=== PATIENT | male | born 1990 | race Caucasian/White ===

== ENCOUNTER → 2016-06-15 | Outpatient (CLI) | payer BC ==
[2016-06-15 08:24] LABS: ABSOLUTE EOSINOPHILS # (AUTO) 0.1 10^3/uL (0.0-0.6); ABSOLUTE LYMPHOCYTES (AUTO) 2.3 10^3/uL (0.5-4.7); ABSOLUTE MONOCYTES (AUTO) 0.5 10^3/uL (0.1-1.4); ABSOLUTE NEUT (AUTO) 4.3 10^3/uL (1.7-8.2); BASOPHILS % (AUTO) 0.6 % (0-2); EOSINOPHILS % (AUTO) 1.9 % (0-6); LYMPHOCYTES % (AUTO) 31.6 % (13-45); MEAN CORPUSCULAR HEMOGLOBIN 28.1 pg (27.0-33.4); MEAN CORPUSCULAR HGB CONC 33.4 g/dL (32.0-36.0); MEAN CORPUSCULAR VOLUME 84 fl (80-97); MONOCYTES % (AUTO) 6.9 % (3-13); RED BLOOD COUNT 4.99 10^6/uL (4.35-5.55); RED CELL DISTRIBUTION WIDTH 13.3 % (11.5-14.0); WHITE BLOOD COUNT 7.3 10^3/uL (4.0-10.5)
[2016-06-15 08:56] LABS: ALANINE AMINOTRANSFERASE 36 U/L (21-72); ALBUMIN 4.6 g/dL (3.5-5.0); ALKALINE PHOSPHATASE 116 U/L (38-126); ANION GAP 13 (5-19); ASPARTATE AMINO TRANSFERASE 22 U/L (17-59); BILIRUBIN,TOTAL 0.7 mg/dL (0.2-1.3); BLOOD UREA NITROGEN 18 mg/dL (7-20); CALCIUM 10.1 mg/dL (8.4-10.2); CARBON DIOXIDE 23 mmol/L (22-30); CHLORIDE 100 mmol/L (98-107); CHOLESTEROL 130.09 mg/dL (0-200); CREATININE RESULT 0.65 mg/dL (0.52-1.25); Direct HDL 60 mg/dL (>40); GLUCOSE 335 mg/dL (75-110); POTASSIUM 4.8 mmol/L (3.6-5.0); TOTAL PROTEIN 7.4 g/dL (6.3-8.2); TRIGLYCERIDES 83 mg/dL (<150)
[2016-06-15 09:07] LABS: DIRECT LDL 53 mg/dL (<100)
== END ==
LOC: OD 07:25
DX: E10.9 Type 1 diabetes mellitus without complications (principal); I10 Essential (primary) hypertension; E78.2 Mixed hyperlipidemia
CPT/HCPCS: 36415; 80053; 80061; 83036; 84443; 85025

== ENCOUNTER → 2016-10-14 | Outpatient (CLI) | payer BC ==
--- NOTE | 2016-10-14 16:44 | RADIOLOGY REPORT (SQ) ---
EXAM DESCRIPTION: HAND RIGHT 3 VIEWS COMPLETED DATE/TIME: 10/14/2016 4:31 pm REASON FOR STUDY: UNSP INJURY OF RIGHT WRIST, HAND AND FINGER(S), INIT ENCNTR S69.91XA UNSP INJURY OF RIGHT WRIST, HAND AND FINGER(S), INI COMPARISON: None. EXAM PARAMETERS: NUMBER OF VIEWS: Three views. TECHNIQUE: AP, lateral and oblique radiographic images acquired of the right hand. LIMITATIONS: None. FINDINGS: MINERALIZATION: Normal. BONES: Acute fracture, base 5th finger middle phalanx at the PIP joint. There is a step-off marked w ith an arrow on the oblique view. JOINTS: Soft tissue swelling at the right 5th finger PIP joint SOFT TISSUES: Soft tissue swelling at the right 5th finger PIP joint. No foreign body. OTHER: No other significant finding. IMPRESSION: Acute nondisplaced fracture, base right pinky finger middle phalanx TECHNICAL DOCUMENTATION: JOB ID: [id number] [employer]- All Rights Reserved
== END ==
LOC: OD 16:13
PROVIDERS: ATTEND Nurse Practitioner Acute Care
DX: S69.91XA Unspecified injury of right wrist, hand and finger(s), initial encounter (principal); X58.XXXA Exposure to other specified factors, initial encounter; Y93.9 Activity, unspecified; Y92.9 Unspecified place or not applicable

== ENCOUNTER → 2016-12-25 | Outpatient (CLI) | payer BC ==
[2016-12-25 10:30] LABS: ANION GAP 15 (5-19); BLOOD UREA NITROGEN 18 mg/dL (7-20); CALCIUM 9.9 mg/dL (8.4-10.2); CARBON DIOXIDE 21 mmol/L (22-30); CHLORIDE 101 mmol/L (98-107); CREATININE RESULT 0.62 mg/dL (0.52-1.25); GLUCOSE 385 mg/dL (75-110); POTASSIUM 4.5 mmol/L (3.6-5.0); SODIUM 137.1 mmol/L (137-145)
== END ==
LOC: OD 08:36
PROVIDERS: ATTEND Internal Medicine
DX: E10.65 Type 1 diabetes mellitus with hyperglycemia (principal)
CPT/HCPCS: 36415; 80048; 83036

== ENCOUNTER 2018-01-07 22:57 | Emergency (ER) | payer BC ==
[2018-01-07] MEDS ORDERED: IBUPROFEN 800 MG TABLET PO ONE (23:56)
--- NOTE | 2018-01-07 23:57 | ER Document Report ---
HPI - HPI Patient complains to provider of: Chest pain Onset: This evening Onset/Duration: Sudden Quality of pain: Achy Pain Level: 4 Context: Patient states that he was at a concert and was struck by an unknown known object and he ended up falling. Patient denies any cough or difficulty breathing. Patient complains of pain with palpation of the chest. Associated Symptoms: Chest pain. denies: Nonproductive cough, Productive cough , Nausea, Vomiting, Shortness of breath Exacerbated by: Movement, Deep breathing Relieved by: Denies Similar symptoms previously: No Recently seen / treated by doctor: No - ROS ROS below otherwise negative: Yes Systems Reviewed and Negative: Yes All other systems reviewed and negative - CONSTITUTIONAL Constitutional: DENIES: Fever - NEURO Neurology: DENIES: Headache, Weakness - CARDIOVASCULAR Cardiovascular: REPORTS: Chest pain - RESPIRATORY Respiratory: DENIES: Trouble Breathing, Coughing - GASTROINTESTINAL Gastrointestinal: DENIES: Abdominal Pain, Nausea, Patient vomiting - REPRODUCTIVE Reproductive: DENIES: : - MUSCULOSKELETAL Musculoskeletal: DENIES: Extremity pain, Back Pain, Neck Pain - DERM Skin Color: Normal Skin Problems: None Past Medical History - General Information source: Patient - Social History Smoking Status: Never Smoker Frequency of alcohol use: None Drug Abuse: None Occupation: [employer] Family History: Reviewed & Not Pertinent - Past Medical History Cardiac Medical History: Reports: Hx Hypertension Endocrine Medical History: Reports: Hx Diabetes Mellitus Type 1 - previous DKA Surgical Hx: Negative Vertical Provider Document - CONSTITUTIONAL Agree With Documented VS: Yes Exam Limitations: No Limitations General Appearance: WD/WN, No Apparent Distress - INFECTION CONTROL TRAVEL OUTSIDE OF THE [place] IN LAST 30 DAYS: No - HEENT HEENT: Atraumatic, Normocephalic - NECK Neck: Normal Inspection, Supple - RESPIRATORY Respiratory: Breath Sounds Normal, No Respiratory Distress. negative: Chest Non -Tender - Right upper anterior chest wall tenderness, no crepitus or subcutaneous emphysema, no ecchymosis - CARDIOVASCULAR Cardiovascular: Regular Rate, Regular Rhythm, No Murmur - GI/ABDOMEN Gastrointestinal: Abdomen Soft, Abdomen Non-Tender, No Organomegaly - BACK Back: Normal Inspection. negative: CVA Tenderness-Right, CVA Tenderness-Left - MUSCULOSKELETAL/EXTREMETIES Musculoskeletal/Extremeties: MAEW, FROM - NEURO Level of Consciousness: Awake, Alert, Appropriate Motor/Sensory: No Motor Deficit - DERM Integumentary: Warm, Dry, No Rash Course - Re-evaluation Re-evalutation: 01/08/18 00:53 The patient has atypical chest pain as the patient's chest pain is not suggestive of pulmonary embolus, cardiac ischemia, aortic dissection, or other serious etiology. Given the extremely low risk of these diagnoses for the test in evaluation for these possibilities does not appear to be indicated at this time. Patient has been instructed to return if the symptoms worsen or change in any way. - Vital Signs Vital signs: Temp Pulse Resp BP Pulse Ox 98.2 F 95 20 107/60 96 01/07/18 23:29 01/07/18 23:29 01/07/18 23:29 01/07/18 23:29 01/07/18 23:29 - Diagnostic Test Radiology reviewed: Image reviewed, Reports reviewed Discharge - Discharge Clinical Impression: Chest wall pain Condition: Stable Disposition: HOME, SELF-CARE Instructions: Chest Wall Pain ([facility]) Additional Instructions: Return immediately for any new or worsening symptoms Followup with your primary care provider, call tomorrow to make a followup appointment You may take Tylenol [id number] to help with your pain symptoms Prescriptions: Cyclobenzaprine HCl [Flexeril 10 Mg Tablet] 10 mg PO TID #15 tablet Forms: Return to Work Referrals: ARUNA HDEZ MD [LEISA DUBOSE] - Follow up as needed
--- NOTE | 2018-01-08 00:40 | RADIOLOGY REPORT (SQ) ---
EXAM DESCRIPTION: XR CHEST 2 VIEWS COMPLETED DATE/TME: 01/07/2018 23:56 CLINICAL HISTORY: 27 years, Male, fall, R upper chest pain COMPARISON: 10/23/15 NUMBER OF VIEWS: Two TECHNIQUE: Two views of the chest LIMITATIONS: None. FINDINGS: The lungs are clear. The heart is normal in size. There is no pneumothorax or pleural effusion. There is no acute fracture IMPRESSION: No acute cardiopulmonary abnormality 2010 [employer]- All Rights Reserved
[2018-01-08] MEDS ORDERED: LIDOCAINE 5% (700 MG) TRANSDERMAL ADH..PATCH TP ONE (00:52)
[2018-01-08 01:13] VITALS: BP 114/2
== END 2018-01-08 01:13 | disposition home or self-care (01) ==
LOC: ER 22:57
DX: R07.89 Other chest pain (principal); W22.8XXA Striking against or struck by other objects, initial encounter; Y92.89 Other specified places as the place of occurrence of the external cause
CPT/HCPCS: 71046; 99283

== ENCOUNTER 2018-06-28 21:57 | Emergency (ER) | payer BC ==
[2018-06-28] MEDS ORDERED: NORMAL SALINE 1000 ML 1,000 ML IV ONE (22:56)
[2018-06-28] MEDS ORDERED: ONDANSETRON HCL INJ/PF 4 MG/2 ML SDV IV ONE (22:56)
--- NOTE | 2018-06-28 22:56 | ER Document Report ---
ED General - General Chief Complaint: Nausea Stated Complaint: NAUSEA Time Seen by Provider: 06/28/18 22:32 Mode of Arrival: Ambulatory Information source: Patient Notes: 27-year-old male with type 1 diabetes, hypertension presents with nausea that started 3 days prior to arrival. Patient also reports one episode of diarrhea that started today. He denies any vomiting, fever, chills, chest pain, shortness of breath, abdominal pain, dysuria, hematuria, back pain. Patient states that he has been compliant with his Lantus and Humalog. He denies sick contacts. Patient reports that his sugars have been running in the high 100s. TRAVEL OUTSIDE OF THE [place] IN LAST 30 DAYS: No - HPI Onset: Yesterday Onset/Duration: Gradual, Persistent Quality of pain: No pain Severity: None Associated symptoms: Diarrhea, Nausea. denies: Chest pain, Fever, Hurts to breath, Vomiting, Shortness of breath, Weakness Exacerbated by: Denies Relieved by: Denies Similar symptoms previously: No Recently seen / treated by doctor: No - Related Data Allergies/Adverse Reactions: No Known Allergies Allergy (Verified 06/28/18 23:02) Past Medical History - General Information source: Patient, [facility] Records - Social History Smoking Status: Never Smoker Frequency of alcohol use: None Drug Abuse: None Lives with: Family Family History: Reviewed & Not Pertinent Patient has suicidal ideation: No Patient has homicidal ideation: No - Medical History Medical History: Negative - Past Medical History Cardiac Medical History: Reports: Hx Hypertension Endocrine Medical History: Reports: Hx Diabetes Mellitus Type 1 - previous DKA Renal/ Medical History: Reports: Hx Kidney Stones. Denies: Hx Peritoneal Dialysis Review of Systems - Review of Systems Notes: REVIEW OF SYSTEMS: CONSTITUTIONAL : Denies fever, chills, or sweats. Denies recent illness. D enies weight loss, recent hospitalizations. EENT: Denies visual changes, eye pain. Denies sore throat, oral lesions, difficulty swallowing. CARDIOVASCULAR: Denies chest pain. Denies palpitations. Denies lower extremity edema. RESPIRATORY: Denies cough. Denies shortness of breath, wheezing. GASTROINTESTINAL: Denies abdominal pain or distention. Denies vomiting. Denies blood in vomitus, stools, or per rectum. Denies black, tarry stools. Denies constipation. GENITOURINARY: Denies difficulty urinating, painful urination, frequency, blood in urine, testicular pain or penile discharge. MUSCULOSKELETAL: Denies back or neck pain or stiffness. Denies joint pain or swelling. SKIN: Denies rash, lesions or sores. HEMATOLOGIC : Denies easy bruising or bleeding. LYMPHATIC: Denies swollen glands. NEUROLOGICAL: Denies confusion or altered mental status. Denies loss of consciousness. Denies dizziness or lightheadedness. Denies headache. Denies weakness or paralysis. Denies problems difficulty with ambulation, slurred speech. Denies sensory loss, numbness, or tingling. Denies seizures. PSYCHIATRIC: Denies anxiety or stress. Denies depression, suicidal ideation, or Physical Exam - Vital signs Vitals: Temp Pulse Resp BP Pulse Ox 98.3 F 98 18 167/91 H 97 06/28/18 22:04 06/28/18 22:04 06/28/18 22:04 06/28/18 22:04 06/28/18 22:04 Interpretation: Hypertensive. No: Tachycardic, Hypoxic - Notes Notes: PHYSICAL EXAMINATION: GENERAL: Well-appearing, well-nourished and in no acute distress. HEAD: Atraumatic, normocephalic. EYES: Pupils equal round and reactive to light, extraocular movements intact, sclera anicteric, conjunctiva are normal. ENT: Nares patent, oropharynx clear without exudates. Moist mucous membranes. NECK: Normal range of motion, supple without lymphadenopathy LUNGS: Breath sounds clear to auscultation bilaterally and equal. No wheezes rales or rhonchi. HEART: Regular rate and rhythm without murmurs ABDOMEN: Soft, nontender, nondistended abdomen. No guarding, no rebound. No masses appreciated. Musculoskeletal: Normal range of motion, no pitting or edema. No cyanosis. NEUROLOGICAL: Cranial nerves grossly intact. Normal speech, normal gait. Normal sensory, motor exams PSYCH: Normal mood, normal affect. SKIN: Warm, Dry, normal turgor, no rashes or lesions noted. Course - Re-evaluation Re-evalutation: Temp Pulse Resp BP Pulse Ox 98.3 F 98 18 167/91 H 98 06/28/18 22:04 06/28/18 22:04 06/28/18 22:04 06/28/18 22:04 06/28/18 22:32 Laboratory 06/28/18 06/28/18 06/28/18 22:06 22:15 22:37 WBC 7.2 RBC 5.14 Hgb 14.6 Hct 42.5 MCV 83 MCH 28.4 MCHC 34.4 RDW 13.9 Plt Count 304 Seg Neutrophils % 56.1 Lymphocytes % 30.6 Monocytes % 10.3 Eosinophils % 2.5 Basophils % 0.5 Absolute Neutrophils 4.0 Absolute Lymphocytes 2.2 Absolute Monocytes 0.7 Absolute Eosinophils 0.2 Absolute Basophils 0.0 VBG pH VBG pCO2 VBG HCO3 VBG Base Excess Sodium Potassium Chloride Carbon Dioxide Anion Gap BUN Creatinine Est GFR ( Amer) Est GFR (Non-Af Amer) Glucose POC Glucose 187 H Calcium Total Bilirubin Direct Bilirubin Neonat Total Bilirubin Neonat Direct Bilirubin Neonat Indirect Bili AST ALT Alkaline Phosphatase Total Protein Albumin Urine Color YELLOW Urine Appearance SLIGHTLY-CLOUDY Urine pH 5.0 Ur Specific [place] 1.028 Urine Protein NEGATIVE Urine Glucose (UA) >=500 H Urine Ketones TRACE H Urine Blood NEGATIVE Urine Nitrite NEGATIVE Urine Bilirubin NEGATIVE Urine Urobilinogen NEGATIVE Ur Leukocyte Esterase NEGATIVE Urine WBC (Auto) 1 Urine RBC (Auto) 1 Urine Mucus (Auto) MOD Urine Ascorbic Acid NEGATIVE 06/28/18 06/28/18 22:37 22:37 WBC RBC Hgb Hct MCV MCH MCHC RDW Plt Count Seg Neutrophils % Lymphocytes % Monocytes % Eosinophils % Basophils % Absolute Neutrophils Absolute Lymphocytes Absolute Monocytes Absolute Eosinophils Absolute Basophils VBG pH 7.38 VBG pCO2 43.4 VBG HCO3 24.9 VBG Base Excess -0.5 Sodium 139.2 Potassium 4.0 Chloride 106 Carbon Dioxide 24 Anion Gap 9 BUN 15 Creatinine 0.61 Est GFR ( Amer) > 60 Est GFR (Non-Af Amer) > 60 Glucose 192 H POC Glucose Calcium 9.7 Total Bilirubin 0.3 Direct Bilirubin 0.1 Neonat Total Bilirubin Not Reportable Neonat Direct Bilirubin Not Reportable Neonat Indirect Bili Not Reportable AST 27 ALT 36 Alkaline Phosphatase 124 Total Protein 7.4 Albumin 4.3 Urine Color Urine Appearance Urine pH Ur Specific [place] Urine Protein Urine Glucose (UA) Urine Ketones Urine Blood Urine Nitrite Urine Bilirubin Urine Urobilinogen Ur Leukocyte Esterase Urine WBC (Auto) Urine RBC (Auto) Urine Mucus (Auto) Urine Ascorbic Acid 06/28/18 22:55 27-year-old male with type 1 diabetes presents with complaint of nausea only. He does state he had one episode of diarrhea but denies any abdominal pain. Vital signs reviewed upon arrival and patient is afebrile, mildly hypertensive, not hypoxic or tachycardic. Patient does not appear toxic or dehydrated. He is in no acute distress. Previous medical records and nursing notes reviewed. 06/29/18 04:03 CBC is without leukocytosis or anemia. CMP does show hyperglycemia without evidence of DKA. VBG is without acidosis. urinalysis not consistent with infection, is absent of ketones but does show glucose. On reevaluation patient reports improvement of his nausea. He is tolerating p.o. prior to discharge. we will discharge him home with Zofran. Patient encouraged to exercise, eat a healthier diet and follow-up with his primary care physician. Patient was evaluated and treated as appropriate for the patient's presenting symptoms and complaint, with consideration of any critical or life threatening conditions that may be associated with their obtained history and exam as noted above. All results were discussed with patient. Patient provided the opportunity to ask questions, and express concerns. Patient was educated on treatments based on their presumed diagnosis as noted above. At this time we will discharge the patient with return precautions and follow-up recommendations. Verbal discharge instructions given a the bedside. Medication warnings reviewed. Patient is in agreement with this plan and has verbalized understanding of return precautions. After careful consideration I feel that that patient can be safely discharged from the emergency department, they were advised to followup with a primary care physician in 2-3 days. Dictation on this chart was performed using voice recognition software and may result in unintended grammatical, spelling, syntax or errors. 06/29/18 04:04 - Vital Signs Vital signs: Temp Pulse Resp BP Pulse Ox 97.6 F 78 15 115/79 96 06/29/18 01:01 06/29/18 01:55 06/29/18 01:55 06/29/18 01:55 06/29/18 01:55 - Laboratory Result Diagrams: 06/28/18 22:37 06/28/18 22:37 Laboratory results interpreted by me: 06/28/18 06/28/18 06/28/18 22:06 22:15 22:37 Glucose 192 H POC Glucose 187 H Urine Glucose (UA) >=500 H Urine Ketones TRACE H Discharge - Discharge Clinical Impression: Hyperglycemia due to type 1 diabetes mellitus, Nausea, Glucosuria HTN (hypertension) Qualifiers: Hypertension type: unspecified Qualified Code(s): I10 - Essential (primary) hypertension Condition: Good Disposition: HOME, SELF-CARE Instructions: Nausea or Vomiting, Nonspecific ([facility]) Additional Instructions: Your lab work today did not show any evidence of DKA. Your glucose is elevated and there is glucose in your urine. Please take the Zofran as needed for nausea and follow-up with your primary care physician in the next 24-48 hours. You need to followup urgently with your primary care doctor as your blood sugars were dangerously today. You did not have any evidence of a dangerous condition associated with these blood sugars at this time. However, it is very important that you get your blood sugars under control. Please take all of your medications exactly as directed. You should avoid foods that are high in carbohydrates and sugary foods. Losing weight will also help to better control your blood sugars. Please return to emergency department immediately if you develop weakness, persistent vomiting, confusion, or any other symptoms that are concerning to you. Forms: Elevated Blood Pressure
[2018-06-28 22:59] LABS: ABSOLUTE EOSINOPHILS # (AUTO) 0.2 10^3/uL (0.0-0.6); ABSOLUTE LYMPHOCYTES (AUTO) 2.2 10^3/uL (0.5-4.7); ABSOLUTE MONOCYTES (AUTO) 0.7 10^3/uL (0.1-1.4); BASOPHILS % (AUTO) 0.5 % (0-2); EOSINOPHILS % (AUTO) 2.5 % (0-6); HEMATOCRIT 42.5 % (37.9-51.0); HEMOGLOBIN 14.6 g/dL (13.5-17.0); LYMPHOCYTES % (AUTO) 30.6 % (13-45); MEAN CORPUSCULAR HEMOGLOBIN 28.4 pg (27.0-33.4); MEAN CORPUSCULAR HGB CONC 34.4 g/dL (32.0-36.0); MEAN CORPUSCULAR VOLUME 83 fl (80-97); MONOCYTES % (AUTO) 10.3 % (3-13); PLATELET COUNT 304 10^3/uL (150-450); RED BLOOD COUNT 5.14 10^6/uL (4.35-5.55); RED CELL DISTRIBUTION WIDTH 13.9 % (11.5-14.0); SEGMENTED NEUTROPHILS % (AUTO) 56.1 % (42-78); TOTAL CELLS COUNTED % (AUTO) 100 %; WHITE BLOOD COUNT 7.2 10^3/uL (4.0-10.5)
[2018-06-28 23:04] LABS: VENOUS BLOOD BASE EXCESS -0.5 mmol/L; VENOUS BLOOD HCO3 24.9 mmol/L (20-32); VENOUS BLOOD PCO2 43.4 mmHg (35-63); VENOUS BLOOD PH 7.38 (7.30-7.42)
[2018-06-28 23:14] LABS: ALANINE AMINOTRANSFERASE 36 U/L (21-72); ALBUMIN 4.3 g/dL (3.5-5.0); ALKALINE PHOSPHATASE 124 U/L (38-126); ANION GAP 9 (5-19); ASPARTATE AMINO TRANSFERASE 27 U/L (17-59); BILIRUBIN,DIRECT 0.1 mg/dL (0.0-0.4); BILIRUBIN,TOTAL 0.3 mg/dL (0.2-1.3); BLOOD UREA NITROGEN 15 mg/dL (7-20); CALCIUM 9.7 mg/dL (8.4-10.2); CARBON DIOXIDE 24 mmol/L (22-30); CHLORIDE 106 mmol/L (98-107); GLUCOSE 192 mg/dL (75-110); SODIUM 139.2 mmol/L (137-145); TOTAL PROTEIN 7.4 g/dL (6.3-8.2)
[2018-06-28 23:26] LABS: APPEARANCE,URINE SLIGHTLY-CLOUDY; BILIRUBIN,URINE NEGATIVE (NEGATIVE); COLOR,URINE YELLOW; GLUCOSE, URINE >=500 mg/dL (NEGATIVE); KETONES,URINE TRACE mg/dL (NEGATIVE); LEUKOCYTE ESTERASE,URINE NEGATIVE (NEGATIVE); NITRITE,URINE NEGATIVE (NEGATIVE); PROTEIN,URINE NEGATIVE (NEGATIVE); URINE SPECIFIC GRAVITY 1.028; UROBILINOGEN,URINE NEGATIVE mg/dL (<2.0)
[2018-06-29] MEDS ORDERED: ONDANSETRON ODT 4 MG TAB (6 TAB/ER DISP) PO PRN (00:11)
[2018-06-29 01:04] VITALS: BP 115/79
== END 2018-06-29 01:55 | disposition home or self-care (01) ==
LOC: ER 21:57
DX: R11.0 Nausea (principal); E10.65 Type 1 diabetes mellitus with hyperglycemia; R81 Glycosuria; R19.7 Diarrhea, unspecified; I10 Essential (primary) hypertension; Z87.442 Personal history of urinary calculi; Z79.4 Long term (current) use of insulin
CPT/HCPCS: 99283; 96360; 36415; 82962; 85025; 80053; 81001; 82803; J2405; J7030

== ENCOUNTER 2018-08-31 04:22 | Emergency (ER) | payer BC, OTHER ==
[2018-08-31 04:28] VITALS: BP 142/85
--- NOTE | 2018-08-31 05:05 | ER Document Report ---
ED Foreign Body - General Chief Complaint: Foreign Body in Ear Stated Complaint: EAR PROBLEM Time Seen by Provider: 08/31/18 04:35 TRAVEL OUTSIDE OF THE [place] IN LAST 30 DAYS: No - HPI Notes: Patient is a 27-year-old male who presents to the emergency department with chief complaint of possible foreign body in the left ear. Patient states that he woke up this morning and heard a buzzing noise around his left ear. He states that at that time he attempted to use a Q-tip but is unsure if he pushed the insect into his ear. Patient states he does feel a fullness in his left ear. Patient denies pain. Patient denies any other complaints at this time. - Related Data Allergies/Adverse Reactions: No Known Allergies Allergy (Verified 06/28/18 23:02) Past Medical History - General Information source: Patient - Social History Smoking Status: Unknown if Ever Smoked Lives with: Family Family History: Reviewed & Not Pertinent Patient has suicidal ideation: No Patient has homicidal ideation: No - Past Medical History Cardiac Medical History: Reports: Hx Hypertension Pulmonary Medical History: Reports: None EENT Medical History: Reports: None Neurological Medical History: Reports: None Endocrine Medical History: Reports: Hx Diabetes Mellitus Type 1 - previous DKA Renal/ Medical History: Reports: Hx Kidney Stones. Denies: Hx Peritoneal Dialysis Malignancy Medical History: Reports None GI Medical History: Reports: None Musculoskeletal Medical History: Reports None Skin Medical History: Reports None Psychiatric Medical History: Reports: None Traumatic Medical History: Reports: None Infectious Medical History: Reports: None Past Surgical History: Reports: Hx Oral Surgery Review of Systems - Review of Systems Constitutional: No symptoms reported EENT: See HPI Cardiovascular: No symptoms reported Respiratory: No symptoms reported Gastrointestinal: No symptoms reported Genitourinary: No symptoms reported Male Genitourinary: No symptoms reported Musculoskeletal: No symptoms reported Skin: No symptoms reported Hematologic/Lymphatic: No symptoms reported Neurological/Psychological: No symptoms reported Physical Exam - Vital signs Vitals: Temp Pulse Resp BP Pulse Ox 97.8 F 89 20 142/85 H 97 08/31/18 04:27 08/31/18 04:27 08/31/18 04:27 08/31/18 04:27 08/31/18 04:27 Interpretation: Normal - Notes Notes: GENERAL: Well-appearing, well-nourished and in no acute distress. HEAD: Atraumatic, normocephalic. EYES: Pupils equal round and reactive to light, extraocular movements intact, sclera anicteric, conjunctiva are normal. ENT: TMs normal, no obvious foreign body. Nares patent, oropharynx clear without exudates. Moist mucous membranes. NECK: Normal range of motion, supple without lymphadenopathy or JVD. LUNGS: Breath sounds clear to auscultation bilaterally and equal. No wheezes rales or rhonchi. HEART: Regular rate and rhythm without murmurs, rubs or gallops. ABDOMEN: Soft, nontender, normoactive bowel sounds. No guarding, no rebound. No masses appreciated. EXTREMITIES: Normal range of motion, no pitting or edema. No clubbing or cyanosis. NEUROLOGICAL: Cranial nerves II through XII grossly intact. Normal speech, normal gait. PSYCH: Normal mood, normal affect. SKIN: Warm, Dry, normal turgor, no rashes or lesions noted. Course - Re-evaluation Re-evalutation: 08/31/18 04:50 Patient did not have a foreign body in his left ear. - Vital Signs Vital signs: Temp Pulse Resp BP Pulse Ox 97.8 F 89 20 142/85 H 97 08/31/18 04:27 08/31/18 04:27 08/31/18 04:27 08/31/18 04:27 08/31/18 04:27 Discharge - Discharge Clinical Impression: Ear pain, left Condition: Stable Disposition: HOME, SELF-CARE Additional Instructions: You were seen in the emergency department today for a possible foreign body in the left ear. Upon evaluation there was no foreign body or insect in the ear canal. Please return to the emergency department if you have any worsening of symptoms, pain, ear drainage, fever.
== END 2018-08-31 05:04 | disposition home or self-care (01) ==
LOC: ER 04:22
DX: H92.02 Otalgia, left ear (principal); I10 Essential (primary) hypertension; E10.9 Type 1 diabetes mellitus without complications
CPT/HCPCS: 99282